=== PATIENT | male | born 1960 | race Caucasian/White ===

== ENCOUNTER → 2025-01-22 | Outpatient (CLI) | payer OTHER, SELFPAY ==
--- NOTE | 2025-01-22 10:30 | XR_ITS ---
Examination: Lumbar spine, 5 views Technique: Lumbar spine AP, lateral, coned lateral lower lumbar spine, bilateral obliques 5 views Exam date and time: January 22, 2025 1037 hours INDICATIONS: Patient fell today with injury to lower back, lower back pain. FINDINGS: Lumbar dextroscoliosis 16 degrees 11 mm lower pole left renal calculus. Moderate to advanced diffuse facet arthropathy No acute lumbar fracture Moderate to advanced diffuse lumbar degenerative disc disease, most severe at L3-L4, L5-S1 Mild chronic osteoporotic compression L2 IMPRESSION: No acute lumbar fracture Moderate to advanced diffuse lumbar degenerative disc disease 11 mm lower pole left renal calculus
--- NOTE | 2025-01-22 10:30 | XR_ITS ---
Examination: Thoracic spine 3 views TECHNIQUE: AP, lateral, coned lateral upper dorsal spine 3 views Date and time: January 22, 2025 1039 hours INDICATIONS: Patient fell today with injury to the mid back, mid back pain. FINDINGS: Thoracic levoscoliosis 12 degrees Minimal chronic wedging mid dorsal vertebral bodies No acute thoracic fracture Moderate diffuse thoracic degenerative disc disease IMPRESSION: No acute thoracic fracture
--- NOTE | 2025-01-22 10:30 | XR_ITS ---
EXAMINATION: Cervical spine, 5 views Technique: Cervical spine AP, AP odontoid, lateral, bilateral obliques, 5 views Exam date and time: January 22, 2025 1037 hours INDICATIONS: Patient fell today with into the neck, neck pain. FINDINGS: Adequate alignment cervical vertebral bodies. No cervical fracture. Intact odontoid. Advanced degenerative disc disease C5-C6 with moderate bilateral neural foraminal stenosis Impression: No cervical fracture Advanced degenerative disc disease C5-C6
== END | disposition home or self-care (01) ==
LOC: CDIM 10:18
PROVIDERS: PCP Family Medicine; Referring Provider Family Medicine; Visit Provider Family Medicine
DX: S23.8XXA Sprain of other specified parts of thorax, initial encounter (principal); M50.322 Other cervical disc degeneration at C5-C6 level; M51.369 Other intervertebral disc degeneration, lumbar region without mention of lumbar back pain or lower extremity pain; N20.0 Calculus of kidney; X58.XXXA Exposure to other specified factors, initial encounter
CPT/HCPCS: 72050; 72070; 72110

== ENCOUNTER → 2025-04-10 | Outpatient (CLI) | payer MEDICARE, SELFPAY ==
[2025-04-10 09:56] LABS: Collection Type, Urine Clean Catch; Squamous Epithelial Cell,Urine 0 /hpf (0-5)
[2025-04-10 10:26] LABS: Basophils # (Auto) 0.0 Thou/mm3 (0.0-0.2); Basophils % (Auto) 0 % (0-2.5); Eosinophils # (Auto) 0.2 Thou/mm3 (0.0-0.5); Eosinophils % (Auto) 3 % (0-10); Hematocrit 42.6 % (41.0-53.0); Hemoglobin 15.1 g/dL (13.5-16.0); Immature Granulocytes Auto 0.02 Thou/mm3 (0.00-0.00); Lymphocytes # (Auto) 1.9 Thou/mm3 (1.0-4.8); Lymphocytes % (Auto) 24 % (10-50); Mean Corpuscular HGB Conc 35.4 g/dl (31.0-37.0); Mean Corpuscular Hemoglobin 34.6 pg (25.0-35.0); Mean Corpuscular Volume 98 fL (80-100); Monocytes # (Auto) 0.9 Thou/mm3 (0.0-0.8); Monocytes % (Auto) 12 % (0-12); Neutrophils # (Auto) 4.7 Thou/mm3 (1.8-7.7); Neutrophils % (Auto) 61 % (37-80); Nucleated Red Blood Cell # 0.00 Thou/mm3 (0.00-0.00); Nucleated Red Blood Cell % 0 /100 WBC (0); Platelet Count 177 Thou/mm3 (140-440); RDW Standard Deviation 43.8 fL (35.1-43.9); Red Blood Count 4.37 Miln/mm3 (4.50-5.90); White Blood Count 7.8 Thou/mm3 (3.8-10.6)
[2025-04-10 10:39] LABS: Bilirubin,Urine Negative (Negative); Blood,Urine Negative (Negative); Clarity,Urine Clear (Clear/Hazy); Color,Urine Colorless (Lt Yel-Yel); Culture Indicated,Urine Not Indicated; Glucose, Urine Negative (Negative); Ketones,Urine Negative (Negative); Leukocyte Esterase,Urine Negative (Negative); Nitrite,Urine Negative (Negative); PH,Urine 6.5 (5.0-7.0); Protein,Urine Negative (Neg - Trace); RBC,Urine < 1 /hpf (0-3); Specific Gravity,Urine 1.004 (1.001-1.035); Urobilinogen,Urine Negative mg/dL (0.0-1.0); WBC,Urine < 1 /hpf (0-5)
[2025-04-10 10:56] LABS: Alanine Aminotransferase 16 U/L (10-49); Albumin, Serum 4.1 gm/dL (3.4-4.8); Albumin/Globulin Ratio 1.5 (1.2-2.2); Alkaline Phosphatase 71 U/L (46-116); Anion Gap 10 (7-16); Aspartate Amino Transferase 19 U/L (0-34); BUN/Creatinine Ratio 18 Ratio (12-20); Bilirubin,Total 1.3 mg/dL (0.3-1.2); Blood Urea Nitrogen 18 mg/dL (9-23); Calcium 9.2 mg/dL (8.3-10.6); Calcium (Corrected) 9.2 mg/dL (8.5-10.1); Carbon Dioxide 26.4 mMol/L (20.0-31.0); Cardiac Risk Estimate 3.0 RATIO (4.0-6.7); Chloride 106 mMol/L (98-107); Cholesterol 164 mg/dL (132-200); Creatinine (Component) 1.0 mg/dL (0.6-1.3); Globulin 2.7 gm/dL (2.3-3.5); Glucose 120 mg/dL (74-106); HDL Cholesterol 55 mg/dL (40-60); LDL Cholesterol,Calculated 99 mg/dL (0-130); Osmolality,Calculated 286 (275-295); Potassium 4.3 mMol/L (3.4-5.1); Sodium 142 mMol/L (136-145); Thyroid Stimulating Hormone 1.40 uIU/mL (0.55-4.78); Total Protein 6.8 gm/dL (5.7-8.2); Triglycerides 52 mg/dL (30-150); eGFR > 60 See Note
== END | disposition home or self-care (01) ==
LOC: COPL 09:06
PROVIDERS: PCP Nurse Practitioner Family; Referring Provider Nurse Practitioner Family; Visit Provider Nurse Practitioner Family
DX: Z00.00 Encounter for general adult medical examination without abnormal findings (principal); I10 Essential (primary) hypertension; I48.21 Permanent atrial fibrillation; Z12.5 Encounter for screening for malignant neoplasm of prostate
CPT/HCPCS: 36415; 80053; 80061; 81001; 84443; 85025